=== PATIENT | male | born 1995 | race Caucasian/White ===

== ENCOUNTER 2019-04-27 12:24 | Emergency (ER) | payer MEDICAID ==
[~2019-04-27] VITALS: Ht 170.2 cm; Wt 100.0 kg
[2019-04-27] MEDS ORDERED: KETOROLAC TROMETHAMINE 30 MG/ML VIAL IM ONE (14:15)
[2019-04-27] MEDS ORDERED: METHOCARBAMOL 500 MG TABLET PO ONE (14:15)
[2019-04-27] MEDS ORDERED: LIDOCAINE 5% TRANSDERMAL PATCH TD ONE (14:15)
[2019-04-27 15:27] VITALS: BP 125/78
== END 2019-04-27 15:30 | disposition home or self-care (01) ==
LOC: EMS 12:26
DX: M54.42 Lumbago with sciatica, left side (principal); M54.41 Lumbago with sciatica, right side; B35.3 Tinea pedis; F17.210 Nicotine dependence, cigarettes, uncomplicated; F12.90 Cannabis use, unspecified, uncomplicated
CPT/HCPCS: 73630; 96372; 99283; 99406; J1885